=== PATIENT | male | born 1980 | race African-American/Black ===

== ENCOUNTER 2021-09-12 09:10 | Inpatient (IN) | payer OTHER ==
[~2021-09-12] VITALS: Ht 180.3 cm; Wt 96.2 kg
[2021-09-12 09:01] VITALS: BP 110/61
--- NOTE | 2021-09-12 09:30 | NUR ---
patient admitted to room 656. oriented to room and call light. denies needs at this time.
[2021-09-12] MEDS ORDERED: ATOR10TA PO (09:37)
[2021-09-12] MEDS ORDERED: INSU100I13 SQ (09:37)
[2021-09-12] MEDS ORDERED: MELA2.5T PO (09:37)
[2021-09-12] MEDS ORDERED: GABA300C18 PO (09:37)
[2021-09-12] MEDS ORDERED: LIPA1CAP31 PO (09:37)
[2021-09-12] MEDS ORDERED: INSU100C4 SQ (09:37)
[2021-09-12] MEDS ORDERED: TRAM50TA PO (09:37)
[2021-09-12] MEDS ORDERED: ONDA4TAB12 PO (09:37)
[2021-09-12] MEDS ORDERED: IV NORMAL SALINE 1000ML BAG 1,000 ML IV SCH (10:45)
[2021-09-12 11:00] VITALS: BP 100/56
[2021-09-12] MEDS ORDERED: traMADol 50 MG TABLET PO PRN (11:00)
[2021-09-12] MEDS ORDERED: ONDANSETRON ODT 4 MG TAB.RAPDIS. PO PRN (11:00)
--- NOTE | 2021-09-12 11:17 | PDOC1 ---
History and Physical Date of Admission Date of Admission DATE: 09/12/21 TIME: 11:04 Source Source: Patient History of Present Illness History of Present Illness Patient examined records from [facility] emergency department reviewed in full patient was transferred from [facility] where he presented earlier this morning with worsening of his mid abdominal and left lower chest pain. He has been dealing with chronic pain from pancreatitis for many years. He follows with Dr. West at [facility] internal medicine clinic as well as Dr. Tai STILES at . His last admission to the hospital was at [facility] 1 month ago with a pancreatitis flare. He does not feel that his current presentation is related to pancreatitis flare in fact he is hu ngry and he feels that he can eat. He has had increasing left upper abdominal and lower chest pain with malaise and cough and congestion over the last 4 days. He did have a fever of 101 noted at the [facility] emergency department. Patient denies any palpitations, mid chest pain, nausea or vomiting. He has chronic diarrhea secondary to his pancreatitis. All systems r eviewed and otherwise negative. Patient will be admitted and started on broad- spectrum intravenous antibiotics targeting community-acquired pneumonia. Patient was transferred to [place] due to challenges and imaging at [facility]. We will get a copy of medical records from that last admission at . The patient does not appear to need urgent imaging here nor does he clinically appear to have pulmonary embolism. Patient's D-dimer may be elevated from his infection. Patient claims an allergy to heparin and we will need the [facility] for DVT prophylaxis. Patient does not appear to have any signs or symptoms of lower extremity DVT. We will continue to follow him closely clinically here on the telemetry unit. Patient is a full code. Inpatient admission is most appropriate as we anticipate a length of stay of 2-3 midnights while we work this through. Time spent today is 30 minutes with greater than 50% in counseling and coordination of care most of which in discussion with patient regarding care plan and progress. Past Medical History Past Medical History See problem list for full past medical history Family History Family History Patient lives with his girlfriend and 2 daughters. 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 He is a full code. Family history reviewed in full and noncontributory to the present illness Social History Smoke: No ALCOHOL: other (Past heavy drinking quit 7 months ago) Drugs: None Current Problem List Problem List Left lower lobe pneumonia with effusion Chronic pancreatitis Chronic narcotic dependence secondary to chronic pancreatitis History of alcoholism last drink 7 months ago History of a right lower extremity DVT in the setting of a prolonged hospital ization he has never had a pulmonary embolism Patient has had 2 episodes of COVID with the last in April 2021 he recovered fully from that Insulin-dependent diabetes secondary to his chronic pancreatitis. He is not sure of his last A1c Current Medications Current Medications Current Medications Sodium Chloride 1,000 ml @ 100 mls/hr Q10H IV ; Start 09/12/21 at 10:45; Stop 09/12/21 at 20:44; Status UNV Ondansetron HCl (Zofran) 4 mg PRN Q6HRS PRN IVP NAUSEA/VOMITING; Start 09/12/21 at 10:45; Status UNV Zolpidem Tartrate (Ambien) 5 mg PRN QHS PRN PO INSOMNIA, MAY REPEAT IN 1HR; Start 09/12/21 at 10:45; Status UNV Morphine Sulfate (Morphine Sulfate) 1 mg PRN Q1HR PRN IV PAIN; Start 09/12/21 at 10:45; Status UNV Acetaminophen/ Hydrocodone Bitart (Lortab 5/325) 1 tab PRN Q4HRS PRN PO MILD PAIN 1-3; Start 09/12/21 at 10:45; Status UNV Ketorolac Tromethamine (Toradol 30mg Vial) 30 mg PRN Q6HRS PRN IV PAIN; Start 09/12/21 at 10:45; Stop 09/17/21 at 10:44; Status UNV Heparin Sodium (Porcine) (Heparin Sodium) 5,000 unit Q12HR SQ ; Start 09/12/21 at 21:00; Status UNV Atorvastatin Calcium (Lipitor) 10 mg QHS PO ; Start 09/12/21 at 21:00; Status UNV Gabapentin (Neurontin) 300 mg TID PO ; Start 09/12/21 at 14:00; Status UNV Amylase/Lipase/ Protease (Zenpep 10,000) 3 cap TIDAC PO ; Start 09/12/21 at 11:30; Status UNV Ondansetron HCl (Zofran Odt) 4 mg PRN Q4HRS PRN PO nausea; Start 09/12/21 at 11:00; Status UNV Tramadol HCl (Ultram) 50 mg Q6HRS PRN PO PAIN; Start 09/12/21 at 11:00; Status UNV Non-Formulary Medication (Insulin Aspart (Novolog)) 10 unit TIDAC SQ ; Start 09/12/21 at 11:30; Status UNV Non-Formulary Medication (Insulin Glargine,Hum.rec.anlog (Lantus Solostar)) 20 unit QHS SQ ; Start 09/12/21 at 21:00; Status UNV Non-Formulary Medication (Melatonin ) 1 tab QHS PO ; Start 09/12/21 at 21:00; Status UNV Ceftriaxone Sodium (Rocephin) 1 gm Q24H IVP ; Start 09/12/21 at 11:00; Status UNV Azithromycin 500 mg/Dextrose 250 ml @ 250 mls/hr Q24H IV ; Start 09/12/21 at 11:00; Status UNV Active Scripts Active Reported Lipitor (Atorvastatin Calcium) 10 Mg Tablet 1 Tab PO QHS Melatonin 2.5 Mg Tab.chew 1 Tab PO QHS 30 Days Gabapentin 300 Mg Capsule 300 Mg PO TID Ondansetron Odt (Ondansetron) 4 Mg Tab.rapdis 1 Tab PO PRN Q6-8HRS Zenpep Dr 10,000 Units Capsule (Lipase/Protease/Amylase) 1 Each Capsule.dr 3 Each PO TIDAC Tramadol Hcl 50 Mg Tablet 50 Mg PO Q6HRS PRN Novolog (Insulin Aspart) 100 Unit/1 Ml Cartridge 10 Unit SQ TIDAC Lantus Solostar (Insulin Glargine,Hum.rec.anlog) 100 Unit/1 Ml Insuln.pen 20 Unit SQ QHS Physical Exam Physical Exam See below Vitals Vitals Pending for this hospital reviewed at [facility] notable for temperature of 101 heart rate 117 pulse ox 95% on room air respiration 18-22 blood pressure 125/60. In general patient is resting comfortably in bed alert and oriented x3 no acute distress HEENT exam is unremarkable for acute abnormality Neck is soft and supple no adenopathy or thyromegaly noted Chest bilateral equal air entry though diminished throughout no crackles or wheezes are noted Abdomen NABS soft nontender nondistended no masses organomegaly noted Extremity exam is unremarkable for acute abnormality Labs Labs Reviewed from [facility] notable for white count of 8.1 hemoglobin of 9.5 patient is not sure of his baseline platelet count is 182 D-dimer is elevated at 6.3 liver function tests are normal creatinine is 1.0 random glucose is 242 bicarbonate is 24 serum albumin is 2.7 alcohol is undetectable, high- sensitivity troponin is 13, negative flu a flu B strep and COVID antigen test. Lipase was not done. Only imaging done at [facility] is a chest x-ray which is notable for mild left effusion and left basilar infiltrate likely pneumonia. EKG reviewed from [place] notable for sinus tachycardia at 120 bpm normal axis no ST elevation or depression. Flattened T waves in his anterior and lateral leads normal intervals noted VTE Prophylaxis Ordered VTE Prophylaxis Devices: Yes VTE Pharmacological Prophylaxi: Contraindicated Assessment/Plan Assessment/Plan Plan as noted above This note was created using [employer] and may have omissions and/or er rors due to the nature of real-time voice registered radiation therapist. Justifications for Admission Other Justification GUILLERMO DURAN MD September 12, 2021 11:17
[2021-09-12] MEDS: LIPASE/PROTEAS/AMYLAS 10/32/42 CAPSULE.DR. PO SCH ×2 (11:30→16:28)
[2021-09-12 11:47] LABS: BASO % 0 % (0-3); EOS # 0.1 x10^3/uL (0.0-0.7); EOS % 1 % (0-3); HEMATOCRIT 28.5 % (39.0-53.0); HEMOGLOBIN 9.2 g/dL (13.0-17.5); LYMPH # 0.8 x10^3/uL (1.0-4.8); LYMPH % 9 % (24-48); MEAN CORPUSCULAR HEMOGLOBIN 25 pg (25-35); MEAN CORPUSCULAR HGB CONC 32 g/dL (31-37); MEAN CORPUSCULAR VOLUME 77 fL (79-100); MONO # 0.5 x10^3/uL (0.0-1.1); MONO % 5 % (0-9); NEUT # 7.7 x10^3/uL (1.8-7.7); NEUT % 85 % (31-73); PLATELET COUNT 249 x10^3/uL (140-400); RED BLOOD COUNT 3.69 x10^6/uL (4.30-5.70); RED CELL DISTRIBUTION WIDTH 16.1 % (11.5-14.5); WHITE BLOOD COUNT 9.1 x10^3/uL (4.0-11.0)
[2021-09-12 11:58] LABS: ALBUMIN 2.5 g/dL (3.4-5.0); ALBUMIN/GLOBULIN RATIO 0.4 (1.0-1.7); CALCIUM 8.4 mg/dL (8.5-10.1); CREATININE 0.9 mg/dL (0.7-1.3); GFR 113.1; POTASSIUM 3.5 mmol/L (3.5-5.1); TOTAL BILIRUBIN 0.3 mg/dL (0.2-1.0); TOTAL PROTEIN 8.1 g/dL (6.4-8.2)
[2021-09-12] MEDS: AZITHROMYCIN 500 MG in IV DEXTROSE 5% 250 ML IV SCH (12:00)
[2021-09-12] MEDS: INSULIN LISPRO 300 UNITS/3 ML VIAL. SQ SCH ×2 (12:00→17:00)
[2021-09-12] MEDS: GABAPENTIN 300 MG CAPSULE. PO SCH ×2 (13:23→19:42)
[2021-09-12] MEDS: cefTRIAXone IV Push 1 GM VIAL. IVP SCH (13:25)
[2021-09-12] MEDS: KETOROLAC 30 MG/ML VIAL. IV PRN ×2 (13:36→19:42)
[2021-09-12] MEDS: ONDANSETRON PF 4 MG/2 ML VIAL. IVP PRN ×2 (13:36→19:43)
[2021-09-12 15:00] VITALS: BP 121/80
[2021-09-12] MEDS: HYDROcodone/APAP 5/325MG 1 TAB TABLET PO PRN ×2 (17:56→21:56)
[2021-09-12 18:14] VITALS: BP 170/82
--- NOTE | 2021-09-12 18:17 | NUR ---
patient became tachycardic into the 140's while walking to bathroom. C/O feeling cold, is shivering. Temp 101.5. Had just been given lortab prior to going to bathroom. CBG 129, BP 1701/82. States this is how he felt during the night last night when he went to [facility]. Page to Dr. Jernigan who returned call. No new orders as of yet.
[2021-09-12] MEDS: MORPHINE SULFATE 2 MG/ML INJ. IV PRN ×2 (18:30→19:42)
[2021-09-12] MEDS ORDERED: LABETALOL 20 MG/4 ML DISP.SYRIN. IVP PRN (18:30)
[2021-09-12 19:19] VITALS: BP 139/79
[2021-09-12] MEDS: ACETAMINOPHEN 325 MG TABLET. PO PRN (19:42)
[2021-09-12] MEDS: ATORVASTATIN CALCIUM 10 MG TABLET. PO SCH (19:42)
[2021-09-12] MEDS ORDERED: NON FORMULARY ITEM (Melatonin 1 TAB) PO SCH (21:00)
[2021-09-12] MEDS ORDERED: HEPARIN for SUB-Q USE 5,000 UNIT/ML VIAL. SQ SCH (21:00)
[2021-09-12] MEDS: INSULIN GLARGINE SYRINGE. SQ SCH (21:08)
[2021-09-12] MEDS: ZOLPIDEM 5 MG TABLET. PO PRN (21:56)
[2021-09-12 22:19] VITALS: BP 96/50
[2021-09-13 03:20] VITALS: BP 106/57
[2021-09-13 04:04] LABS: BASO % 0 % (0-3); EOS # 0.1 x10^3/uL (0.0-0.7); EOS % 2 % (0-3); HEMATOCRIT 27.1 % (39.0-53.0); HEMOGLOBIN 8.7 g/dL (13.0-17.5); LYMPH % 13 % (24-48); MEAN CORPUSCULAR HEMOGLOBIN 25 pg (25-35); MEAN CORPUSCULAR HGB CONC 32 g/dL (31-37); MEAN CORPUSCULAR VOLUME 77 fL (79-100); MONO # 0.6 x10^3/uL (0.0-1.1); MONO % 8 % (0-9); NEUT # 6.2 x10^3/uL (1.8-7.7); NEUT % 78 % (31-73); PLATELET COUNT 217 x10^3/uL (140-400); RED BLOOD COUNT 3.51 x10^6/uL (4.30-5.70); RED CELL DISTRIBUTION WIDTH 16.2 % (11.5-14.5); WHITE BLOOD COUNT 7.9 x10^3/uL (4.0-11.0)
[2021-09-13 04:32] LABS: ALBUMIN 2.3 g/dL (3.4-5.0); ALBUMIN/GLOBULIN RATIO 0.5 (1.0-1.7); CALCIUM 8.4 mg/dL (8.5-10.1); GFR 100.1; POTASSIUM 3.5 mmol/L (3.5-5.1); TOTAL BILIRUBIN 0.2 mg/dL (0.2-1.0); TOTAL PROTEIN 7.4 g/dL (6.4-8.2)
[2021-09-13 07:00] VITALS: BP 120/57
[2021-09-13] MEDS: LIPASE/PROTEAS/AMYLAS 10/32/42 CAPSULE.DR. PO SCH ×3 (07:41→16:36)
[2021-09-13] MEDS: HYDROcodone/APAP 5/325MG 1 TAB TABLET PO PRN ×2 (08:08→13:33)
[2021-09-13] MEDS: LACTOBACILLUS RHAMNOSUS GG 1 CAPSULE. PO SCH ×2 (08:28→20:14)
[2021-09-13] MEDS: GABAPENTIN 300 MG CAPSULE. PO SCH ×3 (08:29→20:15)
[2021-09-13] MEDS: INSULIN LISPRO 300 UNITS/3 ML VIAL. SQ SCH ×3 (08:32→21:00)
[2021-09-13] MEDS ORDERED: MULTIVIT INFUSN,ADULT 4,VIT K 10 ML, THIAMINE INJ 100 MG, FOLIC ACID INJ 1 MG in IV NOR... IV SCH (09:00)
[2021-09-13 11:00] VITALS: BP 111/55
[2021-09-13] MEDS: cefTRIAXone IV Push 1 GM VIAL. IVP SCH (11:21)
[2021-09-13] MEDS: AZITHROMYCIN 500 MG in IV DEXTROSE 5% 250 ML IV SCH (12:00)
[2021-09-13 15:00] VITALS: BP 134/76
--- NOTE | 2021-09-13 15:25 | PDOC ---
[employer] PROGRESS NOTE Date of Service DOS: DATE: 09/13/21 TIME: 15:25 Chief Complaint Chief Complaint Chest pain - atypical, has cough. With chronic pancreatitis and negative troponin negative EKG from prior to transfer we will maintain telemetry monitoring and treat as pancreatitis. 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 Rocephin + azithromycin Diarrhea - will check c. diff Elevated d-dimer Anemia - check iron studies given his microcytosis Chronic pancreatitis - cont outpatient creon FEN - Liquid diet PPX - scds FULL CODE Dispo - inpatient History of Present Illness History of Present Illness Patient is a 31-year-old male presenting to the emergency department at [facility] in [place] for evaluation of profuse shaking that he felt was due to hypoglycemia and he ate a honey bun and called EMS and when they arrived his blood sugar was 222 and his shaking had improved. He says that he has been having chest pain for the past 4 days that is intermittent and is achy on the left side of the chest that is worse with palpation and movements. He denies having cough congestion dysuria headache neck stiffness unilateral weakness numbness or tingling. Patient has diabetes but denies any prior cardiac or stratification. He appears nontoxic but is tachycardic and febrile. EKG appeared Sinus tachycardia at 120 bpm with normal axis no ST elevation or depression with flattened T waves in his anterior and lateral leads and normal intervals. Transferred to [facility] for further evaluation Labs from [facility] notable for white count of 8.1 hemoglobin of 9.5 patient is not sure of his baseline platelet count is 182 D-dimer is elevated at 6.3 liver function tests are normal creatinine is 1.0 random glucose is 242 bicarbonate is 24 serum albumin is 2.7 alcohol is undetectable, high- sensitivity troponin is 13, negative flu a flu B strep and COVID antigen test. Lipase was not done. 09/13: Multiple bouts of diarrhea still with left lower chest wall pain and left upper quadrant pain. Unable to take p.o. well. No hypoglycemic episodes. He does not cough salicylates. New. On Rocephin and azithromycin. He notes he previously has been treated for C. difficile. We will follow-up on stool results. Vitals/I&O Vitals/I&O: Vital Signs Date Time Temp Pulse Resp B/P (MAP) Pulse Ox O2 Delivery O2 Flow Rate FiO2 09/13/21 13:33 96 Room Air 09/13/21 11:00 98.7 78 16 111/55 (73) 98.7 I & O 09/12/21 09/12/21 09/13/21 15:00 23:00 07:00 Intake Total 300 ml 600 ml 150 ml Output Total 175 ml Balance 300 ml 425 ml 150 ml Physical Exam General: Alert, Oriented X3, Cooperative, moderate distress Heart: Regular rate, Normal S1, Normal S2 Lungs: Other (left basilar decreased sounds) Abdomen: Normal bowel sounds, Soft, Other (LUQ tenderness) Extremities: No clubbing, No cyanosis Skin: No rashes, No breakdown Labs Labs: Laboratory Tests Test 09/12/21 17:01 09/12/21 18:12 09/12/21 20:26 09/13/21 02:40 Glucose (Fingerstick) 81 mg/dL (70-99) 129 mg/dL (70-99) 164 mg/dL (70-99) White Blood Count 7.9 x10^3/uL (4.0-11.0) Red Blood Count 3.51 x10^6/uL (4.30-5.70) Hemoglobin 8.7 g/dL (13.0-17.5) Hematocrit 27.1 % (39.0-53.0) Mean Corpuscular Volume 77 fL (79-100) Mean Corpuscular Hemoglobin 25 pg (25-35) Mean Corpuscular Hemoglobin Concent 32 g/dL (31-37) Red Cell Distribution Width 16.2 % (11.5-14.5) Platelet Count 217 x10^3/uL (140-400) Neutrophils (%) (Auto) 78 % (31-73) Lymphocytes (%) (Auto) 13 % (24-48) Monocytes (%) (Auto) 8 % (0-9) Eosinophils (%) (Auto) 2 % (0-3) Basophils (%) (Auto) 0 % (0-3) Neutrophils # (Auto) 6.2 x10^3/uL (1.8-7.7) Lymphocytes # (Auto) 1.0 x10^3/uL (1.0-4.8) Monocytes # (Auto) 0.6 x10^3/uL (0.0-1.1) Eosinophils # (Auto) 0.1 x10^3/uL (0.0-0.7) Basophils # (Auto) 0.0 x10^3/uL (0.0-0.2) Sodium Level 140 mmol/L (136-145) Potassium Level 3.5 mmol/L (3.5-5.1) Chloride Level 105 mmol/L (98-107) Carbon Dioxide Level 27 mmol/L (21-32) Anion Gap 8 (6-14) Blood Urea Nitrogen 12 mg/dL (8-26) Creatinine 1.0 mg/dL (0.7-1.3) Estimated GFR (Cockcroft-Gault) 100.1 BUN/Creatinine Ratio 12 (6-20) Glucose Level 238 mg/dL (70-99) Calcium Level 8.4 mg/dL (8.5-10.1) Total Bilirubin 0.2 mg/dL (0.2-1.0) Aspartate Amino Transf (AST/SGOT) 32 U/L (15-37) Alanine Aminotransferase (ALT/SGPT) 19 U/L (16-63) Alkaline Phosphatase 77 U/L (46-116) Total Protein 7.4 g/dL (6.4-8.2) Albumin 2.3 g/dL (3.4-5.0) Albumin/Globulin Ratio 0.5 (1.0-1.7) Test 09/13/21 07:27 09/13/21 11:46 Glucose (Fingerstick) 162 mg/dL (70-99) 81 mg/dL (70-99) Comment Review of Relevant I have reviewed the following items lakisha (where applicable) has been applied. Medications: Current Medications Medications (Trade) Dose Ordered Sig/Nargis Route PRN Reason Start Time Stop Time Status Last Admin Dose Admin Atorvastatin Calcium (Lipitor) 10 mg QHS PO 09/12/21 21:00 09/12/21 19:42 Insulin Glargine (Lantus Syringe) 20 unit QHS SQ 09/12/21 21:00 09/12/21 21:08 Acetaminophen (Tylenol) 650 mg PRN Q6HRS PRN PO MILD PAIN / TEMP > 100.3'F 09/12/21 18:30 09/12/21 19:42 Multivitamins 10 ml/Thiamine HCl 100 mg/Folic Acid 1 mg/Sodium Chloride 1,011.2 ml @ 100 mls/ hr DAILY IV 09/13/21 09:00 09/17/21 19:07 09/13/21 09:00 Lactobacillus Rhamnosus (Culturelle) 1 cap BID PO 09/13/21 09:00 09/13/21 08:28 Justifications for Admission Other Justification LUIS ARMANDO IRVING MD September 13, 2021 15:25
[2021-09-13] MEDS: oxyCODONE IR 5 MG TABLET PO PRN (16:41)
[2021-09-13] MEDS ORDERED: DEXTROSE 50% 25 GM / 50ML DISP.SYRIN. IV PRN (17:15)
[2021-09-13 19:34] VITALS: BP 145/74
[2021-09-13] MEDS: ATORVASTATIN CALCIUM 10 MG TABLET. PO SCH (20:15)
[2021-09-13] MEDS: ACETAMINOPHEN 325 MG TABLET. PO PRN (20:16)
[2021-09-13] MEDS: ONDANSETRON PF 4 MG/2 ML VIAL. IVP PRN (20:16)
[2021-09-13] MEDS: KETOROLAC 30 MG/ML VIAL. IV PRN (20:16)
[2021-09-13] MEDS: MORPHINE SULFATE 2 MG/ML INJ. IV PRN (20:17)
[2021-09-13] MEDS: INSULIN GLARGINE SYRINGE. SQ SCH (22:12)
[2021-09-13 22:43] VITALS: BP 136/75
[2021-09-14 02:55] LABS: BASO % 1 % (0-3); EOS # 0.1 x10^3/uL (0.0-0.7); EOS % 2 % (0-3); HEMATOCRIT 26.7 % (39.0-53.0); HEMOGLOBIN 8.6 g/dL (13.0-17.5); LYMPH # 1.2 x10^3/uL (1.0-4.8); LYMPH % 17 % (24-48); MEAN CORPUSCULAR HEMOGLOBIN 25 pg (25-35); MEAN CORPUSCULAR HGB CONC 32 g/dL (31-37); MEAN CORPUSCULAR VOLUME 77 fL (79-100); MONO # 0.6 x10^3/uL (0.0-1.1); MONO % 8 % (0-9); NEUT # 4.9 x10^3/uL (1.8-7.7); NEUT % 72 % (31-73); PLATELET COUNT 235 x10^3/uL (140-400); RED BLOOD COUNT 3.45 x10^6/uL (4.30-5.70); RED CELL DISTRIBUTION WIDTH 15.9 % (11.5-14.5); WHITE BLOOD COUNT 6.8 x10^3/uL (4.0-11.0)
[2021-09-14 03:09] VITALS: BP 109/69
[2021-09-14 04:28] LABS: ALBUMIN 2.2 g/dL (3.4-5.0); ALBUMIN/GLOBULIN RATIO 0.4 (1.0-1.7); CALCIUM 8.3 mg/dL (8.5-10.1); CREATININE 0.9 mg/dL (0.7-1.3); GFR 113.1; POTASSIUM 3.7 mmol/L (3.5-5.1); TOTAL BILIRUBIN 0.2 mg/dL (0.2-1.0); TOTAL PROTEIN 7.4 g/dL (6.4-8.2)
[2021-09-14 07:00] VITALS: BP 136/76
[2021-09-14] MEDS: INSULIN LISPRO 300 UNITS/3 ML VIAL. SQ SCH ×7 (07:30→21:00)
[2021-09-14] MEDS: LIPASE/PROTEAS/AMYLAS 10/32/42 CAPSULE.DR. PO SCH ×3 (08:53→18:05)
[2021-09-14] MEDS: GABAPENTIN 300 MG CAPSULE. PO SCH ×3 (08:53→19:23)
[2021-09-14] MEDS: oxyCODONE IR 5 MG TABLET PO PRN ×3 (08:53→22:01)
[2021-09-14] MEDS: LACTOBACILLUS RHAMNOSUS GG 1 CAPSULE. PO SCH ×2 (08:54→19:23)
[2021-09-14] MEDS: FOLIC ACID 1 MG TABLET. PO SCH (08:54)
[2021-09-14] MEDS: AZITHROMYCIN 250 MG TABLET. PO SCH (08:54)
[2021-09-14] MEDS: MULTIVITAMIN with MINERAL TABLET. PO SCH (08:54)
[2021-09-14] MEDS: THIAMINE 100 MG TABLET. PO SCH (08:54)
[2021-09-14] MEDS: cefTRIAXone IV Push 1 GM VIAL. IVP SCH (08:55)
--- NOTE | 2021-09-14 10:00 | NUR ---
Wound/Ostomy Care Wound Type/Assessment: Patient seen per wound care consult. See wound assessment. Patient has wound to left chest from an old chest tube site. Patient says it intermittently opens. Wound cleansed, assessed, and measured. Wound is very tender and unable to fully determine if there is more than 0.2cm of depth. Treatment Recommendations/Plan: Recommendations for collagen (white Jennifer) applied to wound bed, cover with contact layer (greasy gauze) and foam dressing. Dressing applied. Recommended to leave this dressing on for one week and do not get wet. Change on Monday. Education provided: patient educated on dressing changes and PU prevention. Offloading surface/device: N/A Recommended Referrals/Tests: If wound does not heal, possible imaging of this area to determine why after all this time it remains unhealed. Discharge Recommendations for dressings: Dressing change instructions left in room, as well as extra collagen and contact for next dressing change. no other wounds noted. Wound care will follow up on 09/23/21.
--- NOTE | 2021-09-14 10:03 | PDOC2 ---
GI CONSULT Date of Service: DATE: 09/14/21 TIME: 10:03 Reason For Consult: diarrhea, h/o C Diff, chronic pancreatitis HPI: HPI: 41 y/o male who says he went to [facility] ER w/ shaking, fever, dizziness, and vomiting. [facility] ER note indicates shaking after eating a honey bun and intermittent left chest pain. At [facility]: WBC 8.1, Hgb 9.5, MCV 79, plt 182, D-dimer 6.3, albumin 2.7, normal LFTs, BNP 371, normal lipase, normal lactic, negative rapid COVID, normal troponin. CXR concerning for pneumonia, transferred to [facility] w/ possible sepsis (tachycardia, fever). Recommendation for VQ scan. H/o pancreatitis w/ past eval/treatment @ (see below): Rare heartburn improved w/ Tums PRN. No dysphagia, hematemesis, constipation, hematochezia, or melena. Currently tolerating regular diet and reports chronic LUQ pain is stable. Also says chronic diarrhea is stable - on pancreatic enzymes and Colestipol at home. Has lost ~20 pounds by avoiding eating breakfast and lunch so he won't have to use the restroom at work. H/o C Diff. Had part of colon removed at time of appendectomy, details unclear. No GB, liver, or PUD history. Takes Tylenol and ibuprofen PRN. Iron profile c/w MAGI/ACD here. Outside records: Has seen Dr. Lujan and Dr. Mendoza @ . Many past EGDs, colonoscopy 04/2019, and ERCPs/EUS. 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 Some concern for colonic fistula at one point - not demonstrated on rectal enema study. Hgb 11.3 on 08/22/21. EUS/ERCP 02/2021: fluid collection drained, no axios stent placed, ERCP showed PD disruption and leak, PD stent placed. EUS/ERCP 06/2021: limited view of esophagus, duodenums unremarkable, major papilla w/ evidence of prior biliary sphincterotomy, normal CBD, normal- appearing PD in head and neck of pancreas and abrupt termination of contrast in distal body (close to neck) - guidewire could not be passed further c/w disconne cted pancreatic duct. CT 08/20/21: prior right hemicolectomy with RUQ ileocolic anastomosis, mild circumferential wall thickening of distal ileum, redemonstration of sequela of necrotizing pancreatitis (mild decreased in area of walled off necrosis involvin g pancreatic body, decrease in mild gas previously associated w/ the LUQ fluid and soft tissue thickening, no new drainable fluid collection). PMH: PMH: HLD, DM, COVID, DVT, CTS ankle surgery, appendectomy FH: Family History: No pertinent hx (no GI cancers, pancreatic disease) Social History: Smoke: No ALCOHOL: other (heavy in past, sober since 01/2021) Drugs: None ROS: GEN: +shakes HEENT: Denies blurred vision, sore throat CV: Denies chest pain RESP: Denies shortness of air, cough GI: Per HPI : Denies hematuria, dysuria ENDO: Denies weight changes NEURO: +dizziness +headache MSK: Denies weakness, joint pain/swelling SKIN: Denies jaundice, pruritus Vitals: Vitals: Vital Signs Date Time Temp Pulse Resp B/P (MAP) Pulse Ox O2 Delivery O2 Flow Rate FiO2 09/14/21 07:00 98.5 83 16 136/76 (96) 95 Room Air 98.5 Labs: Labs: Laboratory Tests Test 09/13/21 11:46 09/13/21 17:07 09/13/21 20:52 09/14/21 02:40 Glucose (Fingerstick) 81 mg/dL (70-99) 167 mg/dL (70-99) 156 mg/dL (70-99) White Blood Count 6.8 x10^3/uL (4.0-11.0) Red Blood Count 3.45 x10^6/uL (4.30-5.70) Hemoglobin 8.6 g/dL (13.0-17.5) Hematocrit 26.7 % (39.0-53.0) Mean Corpuscular Volume 77 fL (79-100) Mean Corpuscular Hemoglobin 25 pg (25-35) Mean Corpuscular Hemoglobin Concent 32 g/dL (31-37) Red Cell Distribution Width 15.9 % (11.5-14.5) Platelet Count 235 x10^3/uL (140-400) Neutrophils (%) (Auto) 72 % (31-73) Lymphocytes (%) (Auto) 17 % (24-48) Monocytes (%) (Auto) 8 % (0-9) Eosinophils (%) (Auto) 2 % (0-3) Basophils (%) (Auto) 1 % (0-3) Neutrophils # (Auto) 4.9 x10^3/uL (1.8-7.7) Lymphocytes # (Auto) 1.2 x10^3/uL (1.0-4.8) Monocytes # (Auto) 0.6 x10^3/uL (0.0-1.1) Eosinophils # (Auto) 0.1 x10^3/uL (0.0-0.7) Basophils # (Auto) 0.0 x10^3/uL (0.0-0.2) Sodium Level 141 mmol/L (136-145) Potassium Level 3.7 mmol/L (3.5-5.1) Chloride Level 106 mmol/L (98-107) Carbon Dioxide Level 27 mmol/L (21-32) Anion Gap 8 (6-14) Blood Urea Nitrogen 9 mg/dL (8-26) Creatinine 0.9 mg/dL (0.7-1.3) Estimated GFR (Cockcroft-Gault) 113.1 BUN/Creatinine Ratio 10 (6-20) Glucose Level 199 mg/dL (70-99) Calcium Level 8.3 mg/dL (8.5-10.1) Total Bilirubin 0.2 mg/dL (0.2-1.0) Aspartate Amino Transf (AST/SGOT) 16 U/L (15-37) Alanine Aminotransferase (ALT/SGPT) 13 U/L (16-63) Alkaline Phosphatase 72 U/L (46-116) Total Protein 7.4 g/dL (6.4-8.2) Albumin 2.2 g/dL (3.4-5.0) Albumin/Globulin Ratio 0.4 (1.0-1.7) Test 09/14/21 07:34 Glucose (Fingerstick) 77 mg/dL (70-99) Allergies: Coded Allergies: heparin (Verified Allergy, Severe, Anaphylaxis, 09/12/21) warfarin (Verified Allergy, Severe, Anaphylaxis, 09/12/21) vancomycin (Verified Allergy, Intermediate, Hives, 09/12/21) Medications: Current Medications Medications (Trade) Dose Ordered Sig/Nargis Route PRN Reason Start Time Stop Time Status Last Admin Dose Admin Multivitamins (Thera M Plus) 1 tab DAILY PO 09/14/21 09:00 09/14/21 08:54 Folic Acid (Folic Acid) 1 mg DAILY PO 09/14/21 09:00 09/14/21 08:54 Thiamine Mononitrate (Vitamin B-1) 100 mg DAILY PO 09/14/21 09:00 09/14/21 08:54 Azithromycin (Zithromax) 500 mg DAILY PO 09/14/21 09:00 09/14/21 08:54 Oxycodone HCl (Roxicodone) 5 mg PRN Q4HRS PRN PO PAIN 09/13/21 15:45 09/14/21 08:53 Imaging: Imaging: see HPI PE: GEN: NAD HEENT: Atraumatic, PERRL LUNGS: CTAB HEART: RRR ABD: NABS, S/ND, LUQ fullness/tenderness EXTREMITY: No edema SKIN: No rashes, no jaundice NEURO/PSYCH: A & O 3 A/P: A/P: Pneumonia H/o necrotizing pancreatitis w/ fluid collections - past workup/treatment as above - discontinuous PD noted MAGI/ACD Chronic LUQ Pain Rare heartburn CRC screen - UTD (2019 @ ) Chronic diarrhea - on Colestipol and panc enzymes at home S/p right hemicolectomy - details unclear, reportedly done w/ appendectomy H/o C Diff H/o alcohol overuse - reports sobriety since 01/2021 -- Time spent reviewing records - past extensive workup at . D/w Dr. Hernandez - recommend f/u there, consider distal pancreatectomy considering discontinuous PD. Await C Diff. SCOTT BANEGAS September 14, 2021 10:03
[2021-09-14 11:00] VITALS: BP 128/71
[2021-09-14] MEDS: KETOROLAC 30 MG/ML VIAL. IVP PRN ×2 (12:14→19:24)
--- NOTE | 2021-09-14 13:00 | PDOC ---
[employer] PROGRESS NOTE Date of Service DOS: DATE: 09/14/21 TIME: 13:00 Chief Complaint Chief Complaint Chest pain - atypical, has cough. With chronic pancreatitis and negative troponin negative EKG from prior to transfer we will maintain telemetry monitoring and treat as pancreatitis. 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 Rocephin + azithromycin Diarrhea - will check c. diff Elevated d-dimer Anemia - check iron studies given his microcytosis Chronic pancreatitis - cont outpatient creon Chest wall wound - wound care treating topically, could be cause of his pain FEN - Liquid diet PPX - scds FULL CODE Dispo - inpatient History of Present Illness History of Present Illness Patient is a 31-year-old male presenting to the emergency department at [facility] in [place] for evaluation of profuse shaking that he felt was due to hypoglycemia and he ate a honey bun and called EMS and when they arrived his blood sugar was 222 and his shaking had improved. He says that he has been having chest pain for the past 4 days that is intermittent and is achy on the left side of the chest that is worse with palpation and movements. He denies having cough congestion dysuria headache neck stiffness unilateral weakness numbness or tingling. Patient has diabetes but denies any prior cardiac or stratification. He appears nontoxic but is tachycardic and febrile. EKG appeared Sinus tachycardia at 120 bpm with normal axis no ST elevation or depression with flattened T waves in his anterior and lateral leads and normal intervals. Transferred to [facility] for further evaluation Labs from [facility] notable for white count of 8.1 hemoglobin of 9.5 patient is not sure of his baseline platelet count is 182 D-dimer is elevated at 6.3 liver function tests are normal creatinine is 1.0 random glucose is 242 bicarbonate is 24 serum albumin is 2.7 alcohol is undetectable, high- sensitivity troponin is 13, negative flu a flu B strep and COVID antigen test. Lipase was not done. 09/13: Multiple bouts of diarrhea still with left lower chest wall pain at old chest tube site and left upper quadrant pain, multiple prior ERCP. Unable to take p.o. well. No hypoglycemic episodes. He does not cough salicylates. New. On Rocephin and azithromycin. He notes he previously has been treated for C. difficile. We will follow-up on stool results. 09/14: Less loose stools. Has a 10 out of 10 headache today and some right gluteal pain going down his hamstring not below the knee. Ordered IV Toradol for treatment. C. difficile pending. Consult GI given his history. He has no further chest pain today and just has a funny feeling in his chest at old chest tube site. Vitals/I&O Vitals/I&O: Vital Signs Date Time Temp Pulse Resp B/P (MAP) Pulse Ox O2 Delivery O2 Flow Rate FiO2 09/14/21 12:17 16 09/14/21 11:00 99.2 83 128/71 (90) 95 Room Air 99.2 l I & O 09/13/21 09/13/21 09/14/21 15:00 23:00 07:00 Intake Total 320 ml 1180 ml 0 ml Output Total 175 ml 200 ml Balance 145 ml 980 ml 0 ml Physical Exam General: Alert, Oriented X3, Cooperative, moderate distress Heart: Regular rate, Normal S1, Normal S2 Lungs: Other (left basilar decreased sounds) Abdomen: Normal bowel sounds, Soft, Other (LUQ tenderness) Extremities: No clubbing, No cyanosis Skin: No rashes, No breakdown Labs Labs: Laboratory Tests Test 09/13/21 17:07 09/13/21 20:52 09/14/21 02:40 09/14/21 07:34 Glucose (Fingerstick) 167 mg/dL (70-99) 156 mg/dL (70-99) 77 mg/dL (70-99) White Blood Count 6.8 x10^3/uL (4.0-11.0) Red Blood Count 3.45 x10^6/uL (4.30-5.70) Hemoglobin 8.6 g/dL (13.0-17.5) Hematocrit 26.7 % (39.0-53.0) Mean Corpuscular Volume 77 fL (79-100) Mean Corpuscular Hemoglobin 25 pg (25-35) Mean Corpuscular Hemoglobin Concent 32 g/dL (31-37) Red Cell Distribution Width 15.9 % (11.5-14.5) Platelet Count 235 x10^3/uL (140-400) Neutrophils (%) (Auto) 72 % (31-73) Lymphocytes (%) (Auto) 17 % (24-48) Monocytes (%) (Auto) 8 % (0-9) Eosinophils (%) (Auto) 2 % (0-3) Basophils (%) (Auto) 1 % (0-3) Neutrophils # (Auto) 4.9 x10^3/uL (1.8-7.7) Lymphocytes # (Auto) 1.2 x10^3/uL (1.0-4.8) Monocytes # (Auto) 0.6 x10^3/uL (0.0-1.1) Eosinophils # (Auto) 0.1 x10^3/uL (0.0-0.7) Basophils # (Auto) 0.0 x10^3/uL (0.0-0.2) Sodium Level 141 mmol/L (136-145) Potassium Level 3.7 mmol/L (3.5-5.1) Chloride Level 106 mmol/L (98-107) Carbon Dioxide Level 27 mmol/L (21-32) Anion Gap 8 (6-14) Blood Urea Nitrogen 9 mg/dL (8-26) Creatinine 0.9 mg/dL (0.7-1.3) Estimated GFR (Cockcroft-Gault) 113.1 BUN/Creatinine Ratio 10 (6-20) Glucose Level 199 mg/dL (70-99) Calcium Level 8.3 mg/dL (8.5-10.1) Total Bilirubin 0.2 mg/dL (0.2-1.0) Aspartate Amino Transf (AST/SGOT) 16 U/L (15-37) Alanine Aminotransferase (ALT/SGPT) 13 U/L (16-63) Alkaline Phosphatase 72 U/L (46-116) Total Protein 7.4 g/dL (6.4-8.2) Albumin 2.2 g/dL (3.4-5.0) Albumin/Globulin Ratio 0.4 (1.0-1.7) Test 09/14/21 11:39 Glucose (Fingerstick) 83 mg/dL (70-99) Comment Review of Relevant I have reviewed the following items lakisha (where applicable) has been applied. Medications: Current Medications Medications (Trade) Dose Ordered Sig/Nargis Route PRN Reason Start Time Stop Time Status Last Admin Dose Admin Multivitamins (Thera M Plus) 1 tab DAILY PO 09/14/21 09:00 09/14/21 08:54 Folic Acid (Folic Acid) 1 mg DAILY PO 09/14/21 09:00 09/14/21 08:54 Thiamine Mononitrate (Vitamin B-1) 100 mg DAILY PO 09/14/21 09:00 09/14/21 08:54 Azithromycin (Zithromax) 500 mg DAILY PO 09/14/21 09:00 09/14/21 08:54 Oxycodone HCl (Roxicodone) 5 mg PRN Q4HRS PRN PO PAIN 09/13/21 15:45 09/14/21 09:20 Ketorolac Tromethamine (Toradol 30mg Vial) 30 mg PRN Q6HRS PRN IVP INFLAMMATION 09/14/21 11:45 09/14/21 12:14 Justifications for Admission Other Justification LUIS ARMANDO IRVING MD September 14, 2021 13:00
--- NOTE | 2021-09-14 14:01 | NUR ---
SS following for discharge planning. SS reviewed pt chart and discussed with pt RN. Pt is from home and is currently on room air. Wound care and GI following. Pt on IV Rocephin. SS will continue to follow for discharge planning.
[2021-09-14 15:00] VITALS: BP 112/65
[2021-09-14] MEDS: MORPHINE SULFATE 2 MG/ML INJ. IV PRN ×2 (15:00→19:25)
[2021-09-14] MEDS: ATORVASTATIN CALCIUM 10 MG TABLET. PO SCH (19:23)
[2021-09-14] MEDS: ACETAMINOPHEN 325 MG TABLET. PO PRN (19:23)
[2021-09-14] MEDS: ONDANSETRON PF 4 MG/2 ML VIAL. IVP PRN (19:24)
[2021-09-14 19:46] VITALS: BP 126/70
[2021-09-14] MEDS: ZOLPIDEM 5 MG TABLET. PO PRN (22:01)
[2021-09-14] MEDS: INSULIN GLARGINE SYRINGE. SQ SCH (22:02)
[2021-09-14 22:40] VITALS: BP 130/61
[2021-09-15 02:52] VITALS: BP 127/94
[2021-09-15] MEDS: KETOROLAC 30 MG/ML VIAL. IVP PRN (05:31)
[2021-09-15] MEDS: ONDANSETRON PF 4 MG/2 ML VIAL. IVP PRN (05:31)
[2021-09-15] MEDS: MORPHINE SULFATE 2 MG/ML INJ. IV PRN (05:32)
[2021-09-15] MEDS: oxyCODONE IR 5 MG TABLET PO PRN (05:43)
[2021-09-15 07:00] VITALS: BP 118/69
[2021-09-15] MEDS: INSULIN LISPRO 300 UNITS/3 ML VIAL. SQ SCH ×4 (07:30→11:57)
[2021-09-15] MEDS: LIPASE/PROTEAS/AMYLAS 10/32/42 CAPSULE.DR. PO SCH (08:23)
[2021-09-15] MEDS: GABAPENTIN 300 MG CAPSULE. PO SCH (08:24)
[2021-09-15] MEDS: THIAMINE 100 MG TABLET. PO SCH (08:24)
[2021-09-15] MEDS: AZITHROMYCIN 250 MG TABLET. PO SCH (08:24)
[2021-09-15] MEDS: LACTOBACILLUS RHAMNOSUS GG 1 CAPSULE. PO SCH (08:24)
[2021-09-15] MEDS: MULTIVITAMIN with MINERAL TABLET. PO SCH (08:24)
[2021-09-15] MEDS: cefTRIAXone IV Push 1 GM VIAL. IVP SCH (08:25)
[2021-09-15] MEDS: FOLIC ACID 1 MG TABLET. PO SCH (08:25)
--- NOTE | 2021-09-15 11:07 | PDOC ---
Date of Service: DATE: 09/15/21 TIME: 11:03 Subjective: Subjective: Feeling better. Abdomen feels okay right now. Asks about going home. Diarrhea is the same - no stools today, does occur overnight. Objective: Objective: D/w nurse - possible DC, still taking lots of pain meds. C Diff negative. Vital Signs: Vital Signs Date Time Temp Pulse Resp B/P (MAP) Pulse Ox O2 Delivery O2 Flow Rate FiO2 09/15/21 07:49 Room Air 09/15/21 07:00 98.3 100 18 118/69 (85) 94 98.3 Labs: Laboratory Tests Test 09/14/21 11:39 09/14/21 16:34 09/14/21 19:49 09/15/21 08:04 Glucose (Fingerstick) 83 mg/dL (70-99) 160 mg/dL (70-99) 120 mg/dL (70-99) 118 mg/dL (70-99) PE: GEN: NAD LUNGS: CTAB HEART: RRR ABD: S/ND/NT NEURO/PSYCH: A & O 3 A/P: Pneumonia H/o complicated pancreatitis/pseudocysts MAGI/ACD - many 'scopes @ [facility] Chronic LUQ Pain Chronic diarrhea H/o C Diff - negative now -- Okay to DC per GI - normally takes Colestipol at home, can resume this. Follow-up w/ [facility]/surgery. Justicifation of Admission Dx: Justifications for Admission: Justification of Admission Dx: Yes SCOTT BANEGAS September 15, 2021 11:07
[2021-09-15] MEDS ORDERED: COLESTIPOL HCL 1 GM TABLET PO SCH (11:30)
[2021-09-15] MEDS ORDERED: LIPA1CAP31 PO (11:51)
[2021-09-15] MEDS ORDERED: OXYC5TAB4 PO (11:51)
[2021-09-15] MEDS ORDERED: DOXY100C3 PO (11:51)
--- NOTE | 2021-09-15 11:57 | PDOC ---
[employer] PROGRESS NOTE Date of Service DOS: DATE: 09/15/21 TIME: 11:47 Chief Complaint Chief Complaint Chest pain - atypical, has cough. With chronic pancreatitis and negative troponin negative EKG from prior to transfer we will maintain telemetry monitoring and treat as pancreatitis. 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 Rocephin + azithromycin Diarrhea - will check c. diff Elevated d-dimer Anemia - check iron studies given his microcytosis Chronic pancreatitis - cont outpatient creon Chest wall wound - wound care treating topically, could be cause of his pain FEN - Liquid diet PPX - scds FULL CODE Dispo - inpatient History of Present Illness History of Present Illness Patient is a 31-year-old male presenting to the emergency department at [facility] in [place] for evaluation of profuse shaking that he felt was due to hypoglycemia and he ate a honey bun and called EMS and when they arrived his blood sugar was 222 and his shaking had improved. He says that he has been having chest pain for the past 4 days that is intermittent and is achy on the left side of the chest that is worse with palpation and movements. He denies having cough congestion dysuria headache neck stiffness unilateral weakness numbness or tingling. Patient has diabetes but denies any prior cardiac or stratification. He appears nontoxic but is tachycardic and febrile. EKG appeared Sinus tachycardia at 120 bpm with normal axis no ST elevation or depression with flattened T waves in his anterior and lateral leads and normal intervals. Transferred to [facility] for further evaluation Labs from [facility] notable for white count of 8.1 hemoglobin of 9.5 patient is not sure of his baseline platelet count is 182 D-dimer is elevated at 6.3 liver function tests are normal creatinine is 1.0 random glucose is 242 bicarbonate is 24 serum albumin is 2.7 alcohol is undetectable, high- sensitivity troponin is 13, negative flu a flu B strep and COVID antigen test. Lipase was not done. 09/13: Multiple bouts of diarrhea still with left lower chest wall pain at old chest tube site and left upper quadrant pain, multiple prior ERCP. Unable to take p.o. well. No hypoglycemic episodes. He does not cough salicylates. New. On Rocephin and azithromycin. He notes he previously has been treated for C. difficile. We will follow-up on stool results. 09/14: Less loose stools. Has a 10 out of 10 headache today and some right gluteal pain going down his hamstring not below the knee. Ordered IV Toradol for treatment. C. difficile pending. Consult GI given his history. He has no further chest pain today and just has a funny feeling in his chest at old chest tube site. 09/15: Stools have firmed up. Pain improved still taking oxycodone p.o. Has complicated GI history. His old chest tube site cooler tender does have a central ulcer no tracking. On doxycycline p.o. for pneumonia treatment outpatient. Consults: GI Vitals/I&O Vitals/I&O: Vital Signs Date Time Temp Pulse Resp B/P (MAP) Pulse Ox O2 Delivery O2 Flow Rate FiO2 09/15/21 07:49 Room Air 09/15/21 07:00 98.3 100 18 118/69 (85) 94 98.3 I & O 09/14/21 09/14/21 09/15/21 15:00 23:00 07:00 Intake Total 260 ml 240 ml Balance 260 ml 240 ml Physical Exam General: Alert, Oriented X3, Cooperative, moderate distress Heart: Regular rate, Normal S1, Normal S2 Lungs: Other (left basilar decreased sounds) Abdomen: Normal bowel sounds, Soft, Other (LUQ tenderness) Extremities: No clubbing, No cyanosis Skin: No rashes, No breakdown Labs Labs: Laboratory Tests Test 09/14/21 16:34 09/14/21 19:49 09/15/21 08:04 09/15/21 11:36 Glucose (Fingerstick) 160 mg/dL (70-99) 120 mg/dL (70-99) 118 mg/dL (70-99) 187 mg/dL (70-99) Comment Review of Relevant I have reviewed the following items lakisha (where applicable) has been applied. Justifications for Admission Other Justification LUIS ARMANDO IRVING MD September 15, 2021 11:57
[2021-09-15 11:59] VITALS: BP 137/82
--- NOTE | 2021-09-15 11:59 | PDOC3 ---
Discharge Summary Visit Information Date of Admission: September 12, 2021 Date of Discharge: September 15, 2021 Admitting Diagnosis: Chest pain Final Diagnosis Chronic pancreatitis, pneumonia Brief Hospital Course Allergies Allergies Coded Allergies Type Severity Reaction Last Updated Verified heparin Allergy Severe Anaphylaxis 09/12/21 Yes warfarin Allergy Severe Anaphylaxis 09/12/21 Yes vancomycin Allergy Intermediate Hives 09/12/21 Yes Vital Signs Vital Signs Date Time Temp Pulse Resp B/P (MAP) Pulse Ox O2 Delivery O2 Flow Rate FiO2 09/15/21 07:49 Room Air 09/15/21 07:00 98.3 100 18 118/69 (85) 94 98.3 Lab Results Laboratory Tests Test 09/13/21 17:07 09/13/21 19:45 09/13/21 20:52 09/14/21 02:40 Glucose (Fingerstick) 167 mg/dL (70-99) 156 mg/dL (70-99) Clostridium difficile Toxin (PCR) Negative (NEGATIVE) White Blood Count 6.8 x10^3/uL (4.0-11.0) Red Blood Count 3.45 x10^6/uL (4.30-5.70) Hemoglobin 8.6 g/dL (13.0-17.5) Hematocrit 26.7 % (39.0-53.0) Mean Corpuscular Volume 77 fL (79-100) Mean Corpuscular Hemoglobin 25 pg (25-35) Mean Corpuscular Hemoglobin Concent 32 g/dL (31-37) Red Cell Distribution Width 15.9 % (11.5-14.5) Platelet Count 235 x10^3/uL (140-400) Neutrophils (%) (Auto) 72 % (31-73) Lymphocytes (%) (Auto) 17 % (24-48) Monocytes (%) (Auto) 8 % (0-9) Eosinophils (%) (Auto) 2 % (0-3) Basophils (%) (Auto) 1 % (0-3) Neutrophils # (Auto) 4.9 x10^3/uL (1.8-7.7) Lymphocytes # (Auto) 1.2 x10^3/uL (1.0-4.8) Monocytes # (Auto) 0.6 x10^3/uL (0.0-1.1) Eosinophils # (Auto) 0.1 x10^3/uL (0.0-0.7) Basophils # (Auto) 0.0 x10^3/uL (0.0-0.2) Sodium Level 141 mmol/L (136-145) Potassium Level 3.7 mmol/L (3.5-5.1) Chloride Level 106 mmol/L (98-107) Carbon Dioxide Level 27 mmol/L (21-32) Anion Gap 8 (6-14) Blood Urea Nitrogen 9 mg/dL (8-26) Creatinine 0.9 mg/dL (0.7-1.3) Estimated GFR (Cockcroft-Gault) 113.1 BUN/Creatinine Ratio 10 (6-20) Glucose Level 199 mg/dL (70-99) Calcium Level 8.3 mg/dL (8.5-10.1) Total Bilirubin 0.2 mg/dL (0.2-1.0) Aspartate Amino Transf (AST/SGOT) 16 U/L (15-37) Alanine Aminotransferase (ALT/SGPT) 13 U/L (16-63) Alkaline Phosphatase 72 U/L (46-116) Total Protein 7.4 g/dL (6.4-8.2) Albumin 2.2 g/dL (3.4-5.0) Albumin/Globulin Ratio 0.4 (1.0-1.7) Test 09/14/21 07:34 09/14/21 11:39 09/14/21 16:34 09/14/21 19:49 Glucose (Fingerstick) 77 mg/dL (70-99) 83 mg/dL (70-99) 160 mg/dL (70-99) 120 mg/dL (70-99) Test 09/15/21 08:04 09/15/21 11:36 Glucose (Fingerstick) 118 mg/dL (70-99) 187 mg/dL (70-99) Laboratory Tests Test 09/14/21 16:34 09/14/21 19:49 09/15/21 08:04 09/15/21 11:36 Glucose (Fingerstick) 160 mg/dL (70-99) 120 mg/dL (70-99) 118 mg/dL (70-99) 187 mg/dL (70-99) Brief Hospital Course Patient is a 31-year-old male presenting to the emergency department at [facility] for evaluation of profuse shaking that he felt was due to hypoglycemia and he ate a honey bun and called EMS and when they arrived his blood sugar was 222 and his shaking had improved. He says that he has been having chest pain for the past 4 days that is intermittent and is achy on the left side of the chest that is worse with palpation and movements. He denies having cough congestion dysuria headache neck stiffness unilateral weakness numbness or tingling. Patient has diabetes but denies any prior cardiac or stratification. He appears nontoxic but is tachycardic and febrile. EKG appeared Sinus tachycardia at 120 bpm with normal axis no ST elevation or depression with flattened T waves in his anterior and lateral leads and normal intervals. Transferred to [facility] for further evaluation Labs from [facility] notable for white count of 8.1 hemoglobin of 9.5 patient is not sure of his baseline platelet count is 182 D-dimer is elevated at 6.3 liver function tests are normal creatinine is 1.0 random glucose is 242 bicarbonate is 24 serum albumin is 2.7 alcohol is undetectable, high- sensitivity troponin is 13, negative flu a flu B strep and COVID antigen test. Lipase was not done. 09/13: Multiple bouts of diarrhea still with left lower chest wall pain at old chest tube site and left upper quadrant pain, multiple prior ERCP. Unable to take p.o. well. No hypoglycemic episodes. He does not cough salicylates. New. On Rocephin and azithromycin. He notes he previously has been treated for C. difficile. We will follow-up on stool results. 09/14: Less loose stools. Has a 10 out of 10 headache today and some right gluteal pain going down his hamstring not below the knee. Ordered IV Toradol for treatment. C. difficile pending. Consult GI given his history. He has no further chest pain today and just has a funny feeling in his chest at old chest tube site. 09/15: Stools have firmed up. Pain improved still taking oxycodone p.o. Has complicated GI history. 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 On doxycycline p.o. for pneumonia treatment outpatient. Consults: GI Discharge Information Condition at Discharge: Improved Follow Up: Weeks Disposition/Orders: D/C to Home Scheduled Atorvastatin Calcium (Lipitor) 10 Mg Tablet, 1 TAB PO QHS for HLD, #90 Ref 1 (Reported) Entered as Reported by: OVIDIO Ames BIRD on 09/12/21936 Last Taken: Unknown Dose on 09/11/21 Last Action: Continued on 09/12/211057 by GUILLERMO DURAN Doxycycline Hyclate (Doxycycline Hyclate) 100 Mg Capsule, 1 CAP PO BID for Pneumonia for 7 Days, #14 Prescribed by: LUIS ARMANDO IRVING MD on 09/15/21 1151 Gabapentin (Gabapentin) 300 Mg Capsule, 300 MG PO TID for NEUROGENIC PAIN, (Reported) Entered as Reported by: OVIDIO M BIRD on 09/12/21936 Last Taken: Unknown Dose on 09/11/21 Last Action: Continued on 09/12/211057 by GUILLERMO DURAN Insulin Aspart (Novolog) 100 Unit/1 Ml Cartridge, 10 UNIT SQ TIDAC for diabetes, (Reported) Entered as Reported by: OVIDIO Hui BRID on 09/12/21936 Last Taken: Unknown Dose on 09/11/21 Last Action: Converted on 09/12/211057 by GUILLERMO DURAN Insulin Glargine,Hum.rec.anlog (Lantus Solostar) 100 Unit/1 Ml Insuln.pen, 20 UNIT SQ QHS for diabetes, #15 Ref 5 (Reported) Entered as Reported by: OVIDIO M BIRD on 09/12/21936 Last Taken: Unknown Dose on 09/11/21 Last Action: Converted on 09/12/211057 by GUILLERMO DURAN Lipase/Protease/Amylase (Zenpep Dr 10,000 Units Capsule) 1 Each Capsule.dr, 3 EACH PO TIDAC for Chronic pancreatic insufficien for 30 Days, #270 Ref 5 Prescribed by: LUIS ARMANDO IRVING MD on 09/15/21 1151 Melatonin (Melatonin) 2.5 Mg Tab.chew, 1 TAB PO QHS for sleep for 30 Days, #30 Ref 0 (Reported) Entered as Reported by: OVIDIO PANG on 09/12/21936 Last Taken: Unknown Dose on 09/11/21 Last Action: Converted on 09/12/211057 by GUILLERMO DURAN Ondansetron (Ondansetron Odt) 4 Mg Tab.rapdis, 1 TAB PO PRN Q6-8HRS for nausea, #16 (Reported) Entered as Reported by: OVIDIO PANG on 09/12/21936 Last Taken: Unknown Dose on 09/11/21 Last Action: Continued on 09/12/21 1058 by GUILLERMO DURAN Scheduled PRN Oxycodone Hcl (Oxycodone Hcl Immed.release ) 5 Mg Tablet, 5 MG PO PRN Q6HRS PRN for SEVERE PAIN for 6 Days, #24 Prescribed by: LUIS ARMANDO IRVING MD on 09/15/21 1152 Discontinued Medications Tramadol Hcl (Tramadol Hcl) 50 Mg Tablet, 50 MG PO Q6HRS PRN for PAIN, (Reported) Entered as Reported by: OVIDIO PANG on 09/12/21936 Last Taken: Unknown Dose on 09/11/21 Last Action: Continued on 09/12/21 1058 by GUILLERMO DURAN Justicifation of Admission Dx: Justifications for Admission: Justification of Admission Dx: Yes LUIS ARMANDO IRVING MD September 15, 2021 11:59
--- NOTE | 2021-09-15 13:05 | NUR ---
Discharge Note: JAYME KING [facility] Discharge instructions and discharge home medications reviewed with Patient and a copy given. All questions have been answered and understanding verbalized.
== END 2021-09-15 12:50 | disposition home or self-care (01) | DRG 871 ==
LOC: 6 SOUTH 09:10
PROVIDERS: ADMIT Internal Medicine; ATTEND Internal Medicine
DX: A41.9 Sepsis, unspecified organism (principal); J18.9 Pneumonia, unspecified organism; K85.90 Acute pancreatitis without necrosis or infection, unspecified; K86.1 Other chronic pancreatitis; E11.649 Type 2 diabetes mellitus with hypoglycemia without coma; E78.5 Hyperlipidemia, unspecified; G89.29 Other chronic pain; K52.9 Noninfective gastroenteritis and colitis, unspecified; Z20.822 Contact with and (suspected) exposure to COVID-19; Z79.4 Long term (current) use of insulin; Z86.718 Personal history of other venous thrombosis and embolism; Z90.49 Acquired absence of other specified parts of digestive tract; Z88.8 Allergy status to other drugs, medicaments and biological substances
CPT/HCPCS: 36415; 80053; 82962; 83540; 83550; 83690; 84145; 85025; 87493; J0456; J0696; J1815; J1885; J2270; J2405; J3411; J3490; J7030; J7060; G0378